=== PATIENT | male | born 1960 | race Caucasian/White ===

== ENCOUNTER 2022-06-20 09:05 | Emergency (ER) | payer OTHER ==
[2022-06-20] MEDS ORDERED: Iopamidol 755 Mg/ML 100 ML Bottle IVPUSH ONE (09:21)
[2022-06-20] MEDS ORDERED: Sodium Chloride 0.9% 10 ML Syringe FLUSH PRN (09:21)
[2022-06-20] MEDS ORDERED: Ondansetron 4 MG/2 ML SDV ONE (09:29)
[2022-06-20] MEDS ORDERED: HYDROmorphone 0.5 MG/0.5 ML Syringe ONE (09:29)
[2022-06-20] MEDS ORDERED: Ondansetron 4 MG/2 ML SDV IVPUSH ONE (09:29)
[2022-06-20] MEDS ORDERED: HYDROmorphone 0.5 MG/0.5 ML Syringe IVPUSH ONE (09:29)
[2022-06-20] MEDS ORDERED: Sodium Chloride 0.9% 45 ML IV SCH (09:30)
[2022-06-20] MEDS ORDERED: Sodium Chloride 0.9% 1,000 ML IV ONE (09:35)
[2022-06-20] MEDS ORDERED: Piperacillin/Tazobactam 4.5 GM in Sodium Chloride 0.9% 100 ML IV ONE (09:53)
[2022-06-20] MEDS ORDERED: Sodium Chloride 0.9% 1,000 ML IV SCH (10:15)
[2022-06-20] MEDS ORDERED: fentaNYL 100 MCG/2 ML SDV ONE ×2 (10:58→12:37)
[2022-06-20] MEDS ORDERED: fentaNYL 100 MCG/2 ML SDV IVPUSH ONE ×2 (10:58→12:39)
[2022-06-20] MEDS: Tranexamic Acid 1,000 MG/10 ML Vial ONE ×2 (11:23→11:53)
[2022-06-20] MEDS ORDERED: Tranexamic Acid 1,000 MG/10 ML Vial IV ONE (12:00)
[2022-06-20] MEDS ORDERED: Iopamidol 612 MG/ML 100 ML Bottle ONE (12:45)
[2022-06-20] MEDS ORDERED: Lactated Ringers 1,000 ML IV ONE (12:52)
== END 2022-06-20 13:35 ==
LOC: JD.ED 09:05
DX: S30.0XXA Contusion of lower back and pelvis, initial encounter (principal); S33.4XXA Traumatic rupture of symphysis pubis, initial encounter; I10 Essential (primary) hypertension; Z79.899 Other long term (current) drug therapy; V80.010A Animal-rider injured by fall from or being thrown from horse in noncollision accident, initial encounter
CPT/HCPCS: 36415; 36430; 71260; 71260-26; 72131; 72131-26; 73552-26-RT; 73552-RT; 74177; 74177-26; 80053; 81001; 83605; 85025; 86850; 86900; 86901; 86922; 96361; 96374; 96375; 96376; 99284; 99285-25; J1170; J2405; J3010; J3490; J7030; J7120; P9016; Q9967